=== PATIENT | male | born 1985 | race Caucasian/White ===

== ENCOUNTER 2021-10-24 14:12 | Emergency (ER) | payer OTHER, SELFPAY ==
--- NOTE | 2021-10-24 14:14 | ED.URI ---
HPI - URI/Sore Throat General Chief Complaint: Upper Respiratory Infection Stated Complaint: bodyache,sorethroat Time Seen by Provider: 10/24/21 14:14 Source: patient Mode of arrival: ambulatory Limitations: no limitations History of Present Illness HPI Narrative: Mr. Serrato is a 36-year-old patient presenting to the clinic today with complaints of body aches and sore throat x2 days. He reports he has felt feverish but has not checked his temperature. He has no known exposure to anybody with COVID, strep, or influenza. MD elicited complaint: sore throat and nasal congestion Related Data Home Medications Medication Instructions Recorded Confirmed No Home Medications 10/24/21 10/24/21 Allergies Allergy/AdvReac Type Severity Reaction Status Date / Time No Known Allergies Allergy Mild Verified 10/24/21 14:34 Review of Systems Review of Systems: Pertinent positives per HPI. Patient denies any rash, headache, visual changes, dizziness, cough, shortness of breath, chest pain, palpitations, nausea, vomiting, diarrhea, constipation, abdominal pain, or any urinary issues. PMFSH Comments At the time of my signature, I reviewed and agree with the nursing past medical, surgical, social, and family history. There is no relevant family history pertinent to the patient complaint. Exam Narrative: General: Well-developed, well nourished, in no apparent distress Head: Normocephalic, atraumatic Eyes: Pupils equally round and reactive to light bilaterally, EOM intact, sclera and conjunctive clear, no discharge, lids normal Ears: TMs intact and clear, ear canals clear, no drainage, grossly hearing normal. Nose: Nares patent, clear nasal discharge, no inflammation, no sinus tenderness. Mouth: Oral pharynx without lesions or masses, good dentition, MMM. Postnasal drip, oropharynx red Neck: Supple, trachea midline, no enlargement of anterior or posterior cervical nodes, no thyroid masses or goiter palpable. Cardio: Regular rate and rhythm, s1 and s2 normal, no murmur appreciated. Resp: Clear to auscultation bilaterally, no rhonchi, rales, wheezing or rubs Course Course Emergency Course: Portions of this record may have been created with voice recognition software. Level of Care: Express Care Visit Vital Signs Vital signs: Vital Signs Temperature 36.9 C 10/24/21 14:26 Pulse Rate 89 10/24/21 14:26 Respiratory Rate 18 10/24/21 14:26 Blood Pressure 122/82 10/24/21 14:26 Pulse Oximetry 100 10/24/21 14:26 Oxygen Delivery Room Air 10/24/21 14:26 Temperature 36.9 C 10/24/21 14:26 Pulse Rate 89 10/24/21 14:26 Respiratory Rate 18 10/24/21 14:26 Blood Pressure 122/82 10/24/21 14:26 Pulse Oximetry 100 10/24/21 14:26 Oxygen Delivery Room Air 10/24/21 14:26 Vital signs reviewed MDM - URI/Sore Throat MDM Narrative Medical decision making narrative: At the time of the visit patient is resting comfortably on exam table. COVID testing was completed and was negative in the clinic. Strep testing was obtained and was negative in the clinic. I suspect the patient has viral pharyngitis, postnasal drip, viral syndrome and supportive measures were discussed with the patient he voiced understanding of discharge instructions and agrees to treatment plan Differential Diagnosis Differential diagnosis: Likely upper respiratory infection, sinusitis, viral infection, bronchitis, influenza, pharyngitis and other (COVID) Lab Data Labs: Strep Screen Presumptive Negative *(Reference Range: Negative)* Discharge Plan Discharge Clinical Impression: Pharyngitis, Viral infection, PND (post-nasal drip) Patient Disposition: Home, Self-Care Condition: Stable Instructions: Antibiotic Form, Pharyngitis (ED), Viral Syndrome (ED) Additional Instructions: Covid and strep testing negative in the clinic today. Increase fluids and stay well
[2021-10-24 14:26] VITALS: BP 122/82; PULSE 89; RESP 18; TEMP 36.9; O2SAT 100
== END 2021-10-24 15:10 | disposition home or self-care (01) ==
PROVIDERS: Emergency Provider Nurse Practitioner Family
DX: J02.9 Acute pharyngitis, unspecified (principal); B34.9 Viral infection, unspecified; R09.82 Postnasal drip; Z20.822 Contact with and (suspected) exposure to COVID-19
CPT/HCPCS: 87081; 87426; 87880; 99213; C9803; G0463

== ENCOUNTER 2021-12-09 17:57 | Emergency (ER) | payer OTHER, SELFPAY ==
[2021-12-09 18:00] VITALS: BP 141/75; PULSE 97; RESP 18; TEMP 36.7; O2SAT 100
--- NOTE | 2021-12-09 18:46 | ED.GENADULT ---
HPI - General Adult General Chief complaint: Upper Respiratory Infection Stated complaint: Sore Throat,Congestion,Sinus,Headache History of Present Illness HPI narrative: Patient is a 36-year-old male who presents to the express care via POV for upper respiratory symptoms that have been present for 2 days. Additionally, he reports sore throat, nasal congestion, fatigue, myalgias, frontal headache, subjective fever, and diarrhea. DayQuil and TheraFlu provides mild, temporary relief of symptoms. Nothing worsens symptoms. He denies known exposure to sick contacts although reports his daughter was ill with similar signs and symptoms a week and a half ago. Related Data Allergies Allergy/AdvReac Type Severity Reaction Status Date / Time No Known Allergies Allergy Mild Verified 12/09/21 17:59 Review of Systems Review of Systems: Denies chills, sweats, change in appetite, poor p.o. intake, sinus problems, ear problems, drooling, difficulty swallowing, dizziness, severe persistent headaches, LOC, neck pain, lymphadenopathy, cough, shortness of breath, wheezing, abdominal pain, nausea, vomiting, constipation, chest pain, and heart palpitations Exam Narrative: GENERAL: Well-appearing, well-nourished, and in no acute distress. HEAD: Normocephalic, atraumatic. No sinus tenderness or facial swelling appreciated. EYES: PERRLA and EOMI. No evidence of erythema, swelling, or drainage. ENT: BILATERAL TONSILS ARE MODERATELY EDEMATOUS AND ERYTHEMATOUS. TONSILLAR STONES ARE PRESENT ON BILATERAL TONSILS. Bilateral external ears and ear canals normal. Bilateral TMs are normal.No TM perforation. Nares clear, no rhinorrhea or epistaxis. Bilateral turbinates without erythema/ swelling. Mucous membranes moist and pink. Uvula is midline without erythema and swelling. No evidence of peritonsillar abscess or pooling of scretions. Airway is patent. Breath odor and voice normal. NECK: Supple. No Lymphadenopathy or nuchal rigidity appreciated. CHEST: Bilateral lung sanchez are clear to auscultation. No respiratory distress. No evidence of cough or pleuritic cp upon examination. HEART: Regular rate and rhythm. No murmur, gallop, or rub heard. EXTREMITIES: Normal range of motion. No edema. SKIN: Warm, dry, no rash. NEURO: No focal deficits. Alert and oriented x3. Course Course Level of Care: Express Care Visit Vital Signs Vital signs: Vital Signs Temperature 98.0 F 12/09/21 18:00 Pulse Rate 97 12/09/21 18:00 Respiratory Rate 18 12/09/21 18:00 Blood Pressure 141/75 H 12/09/21 18:00 Pulse Oximetry 100 12/09/21 18:00 Oxygen Delivery Room Air 12/09/21 18:00 Temperature 98.0 F 12/09/21 18:00 Pulse Rate 97 12/09/21 18:00 Respiratory Rate 18 12/09/21 18:00 Blood Pressure 141/75 H 12/09/21 18:00 Pulse Oximetry 100 12/09/21 18:00 Oxygen Delivery Room Air 12/09/21 18:00 Due to an elevated blood pressure, I had a detailed discussion with the patient and/or guardian regarding the need for follow-up with their primary care provider within the next 3-4 days. Patient verbalized understanding and agreed. Medical Decision Making Differential Diagnosis Differential Diagnosis: Allergic rhinitis, ABRS, acute viral sinusitis, strep pharyngitis, nasopharyngitis, bronchitis, pneumonia, AOM, otitis externa, viral URI, influenza, covid-19 Vital Signs Vital Signs: Vital Signs Temperature 98.0 F 12/09/21 18:00 Pulse Rate 97 12/09/21 18:00 Respiratory Rate 18 12/09/21 18:00 Blood Pressure 141/75 H 12/09/21 18:00 Pulse Oximetry 100 12/09/21 18:00 Oxygen Delivery Room Air 12/09/21 18:00 Temperature 98.0 F 12/09/21 18:00 Pulse Rate 97 12/09/21 18:00 Respiratory Rate 18 12/09/21 18:00 Blood Pressure 141/75 H 12/09/21 18:00 Pulse Oximetry 100 12/09/21 18:00 Oxygen Delivery Room Air 12/09/21 18:00 Lab Data Lab results narrative: influenza a/b negative; rapid strep negative; r
== END 2021-12-09 19:02 | disposition home or self-care (01) ==
PROVIDERS: Emergency Provider Nurse Practitioner Family
DX: J06.9 Acute upper respiratory infection, unspecified (principal); Z20.822 Contact with and (suspected) exposure to COVID-19
CPT/HCPCS: 87081; 87426; 87804; 87880; 99213; C9803; G0463

== ENCOUNTER 2022-06-12 08:32 | Emergency (ER) | payer OTHER, SELFPAY ==
--- NOTE | ~2022-06-12 | XR_ITS ---
XR shoulder LT min 2V DATE: 06/12/2022 09:04 INDICATION: Posterior shoulder pain under scapula TECHNIQUE: 4 views COMPARISON: None FINDINGS: No fracture or dislocation, periosteal reaction or bone destruction or abnormal soft tissue calcification of left shoulder. IMPRESSION: Negative Reviewed, dictated and finalized at location B. IMPRESSION: Negative
[2022-06-12 08:41] VITALS: BP 124/89; PULSE 66; RESP 18; TEMP 36.8; O2SAT 99
[2022-06-12] MEDS: KETOROLAC (*BKC) 60 MG/2 ML VIAL IM (09:19)
[2022-06-12 09:21] VITALS: PULSE 85
[2022-06-12 10:27] VITALS: BP 111/81; PULSE 82; RESP 18; O2SAT 100
--- NOTE | 2022-06-12 10:44 | ED.GENADULT ---
HPI - General Adult General Chief complaint: Extremity Injury, Upper Stated complaint: experiencing shoulder pain Time Seen by Provider: 06/12/22 08:41 History of Present Illness HPI narrative: Patient is a 36-year-old male who presents ER with left shoulder pain. Ongoing over the last week. Posterior shoulder in the back region. No numbness or tingling in the arm. 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 No known injury. No falls or trauma. No redness or swelling. Has occasional burning that goes down the arm. Related Data Home Medications Medication Instructions Recorded Confirmed sertraline 25 mg tablet 25 mg 06/12/22 Allergies Allergy/AdvReac Type Severity Reaction Status Date / Time No Known Allergies Allergy Mild Verified 06/12/22 08:44 Review of Systems Musculoskeletal: Musculoskeletal: Reports back pain, Reports arthralgias and Denies joint swelling Integumentary/Breasts: Skin/Breast: Denies erythema and Denies rash Neurologic: Denies headache(s) and Denies focal weakness Comments: Burning paresthesia PMFSH Past Medical History Medical History (Updated 06/12/22 @ 18:30 by Baldev Lazcano MD) Healthy adult male Surgical History Surgical History (Updated 06/12/22 @ 18:30 by Baldev Lazcano MD) No history of previous surgery Exam Narrative: GENERAL: Well-appearing, well-nourished, and in no acute distress. HEAD: Normocephalic, atraumatic. CHEST: Clear to auscultation. No respiratory distress. HEART: Regular rate and rhythm. Normal peripheral pulses. Back: Tender palpation over the left rhomboid musculature. No midline tenderness. EXTREMITIES: Normal range of motion. No edema. SKIN: Warm, dry, no rash. NEURO: Alert and oriented x3. PSYCH: Normal mood and affect. Course Course Emergency Course: Patient resting comfortably. Improved with Toradol. Seems to have more pain over the rhomboid musculature on the left side as opposed to the shoulder itself. Would benefit from anti-inflammatories muscle relaxers. Discussed treatment plan and patient verbalized understanding. Imaging without osseous injury and patient aware of this finding. Vital Signs Vital signs: Vital Signs Temperature 98.3 F 06/12/22 08:41 Pulse Rate 66 06/12/22 08:41 Respiratory Rate 18 06/12/22 08:41 Blood Pressure 124/89 06/12/22 08:41 Pulse Oximetry 99 06/12/22 08:41 Oxygen Delivery Room Air 06/12/22 08:41 Temperature 98.3 F 06/12/22 08:41 Pulse Rate 78 06/12/22 11:02 Respiratory Rate 16 06/12/22 11:02 Blood Pressure 109/78 06/12/22 11:02 Pulse Oximetry 98 06/12/22 11:02 Oxygen Delivery Room Air 06/12/22 08:41 Medical Decision Making Vital Signs Vital Signs: Vital Signs Temperature 98.3 F 06/12/22 08:41 Pulse Rate 66 06/12/22 08:41 Respiratory Rate 18 06/12/22 08:41 Blood Pressure 124/89 06/12/22 08:41 Pulse Oximetry 99 06/12/22 08:41 Oxygen Delivery Room Air 06/12/22 08:41 Temperature 98.3 F 06/12/22 08:41 Pulse Rate 78 06/12/22 11:02 Respiratory Rate 16 06/12/22 11:02 Blood Pressure 109/78 06/12/22 11:02 Pulse Oximetry 98 06/12/22 11:02 Oxygen Delivery Room Air 06/12/22 08:41 Imaging Data Radiologist's impression: ITS Impressions Shoulder X-Ray 06/12/22 09:07 IMPRESSION: Negative Discharge Plan Discharge Clinical Impression: Strain of thoracic back region Patient Disposition: Home, Self-Care Condition: Stable Instructions: Thoracic Back Strain (ED) Additional Instructions: Return to the ER if you have increased pain in your back, you develop lower extremity weakness/numbness/paralysis, you have numbness or tingling in your private parts, or you are unable to control your ability to urinate/stool. Prescriptions: New cyclobenzaprine 10 mg tablet 10 mg PO TID PRN (Reason:
[2022-06-12 11:02] VITALS: BP 109/78; PULSE 78; RESP 16; O2SAT 98
== END 2022-06-12 11:03 | disposition home or self-care (01) ==
PROVIDERS: Emergency Provider Emergency Medicine; PCP Internal Medicine
DX: S29.012A Strain of muscle and tendon of back wall of thorax, initial encounter (principal); X58.XXXA Exposure to other specified factors, initial encounter
CPT/HCPCS: 73030; 96372; 99283; J1885